=== PATIENT | female | born 1985 | race Caucasian/White ===

== ENCOUNTER 2018-09-27 06:45 | Day surgery (SDC) | payer BC ==
[2018-09-27] MEDS ORDERED: Sodium Chloride 0.9% 10 ML Syringe FLUSH PRN (07:00)
[2018-09-27] MEDS ORDERED: Lidocaine 1%/Sod Bicarbonate in NS 8.4% 1 ML Syringe IDERM PRN (07:00)
[2018-09-27] MEDS ORDERED: Ondansetron 4 MG/2 ML SDV ONE (07:19)
[2018-09-27] MEDS ORDERED: Lactated Ringers 1,000 ML ONE (07:19)
[2018-09-27] MEDS ORDERED: Lidocaine 1% 4 ML ONE (07:19)
[2018-09-27] MEDS ORDERED: Propofol 200 MG/20 ML SDV ONE (07:19)
[2018-09-27] MEDS ORDERED: ceFAZolin 1 GM Vial ONE (07:19)
[2018-09-27] MEDS ORDERED: Rocuronium 50 MG/5 ML Vial ONE (07:19)
[2018-09-27] MEDS ORDERED: Ketorolac 30 MG/ML SDV ONE (07:20)
[2018-09-27] MEDS ORDERED: fentaNYL 250 MCG/5 ML SDV ONE (07:20)
[2018-09-27] MEDS ORDERED: Midazolam 1 MG/ML 2 ML SDV ONE (07:20)
[2018-09-27] MEDS ORDERED: Dexamethasone 4 MG/ML 5 ML MDV ONE (07:20)
[2018-09-27] MEDS ORDERED: Bupivacaine 0.5% 30 ML SDV ONE (07:31)
[2018-09-27] MEDS ORDERED: Lidocaine 1% with EPINEPHrine 1:100,000 20 ML MDV ONE (07:31)
[2018-09-27] MEDS ORDERED: Sodium Chloride 0.9% 50 ML SDV ONE (07:32)
[2018-09-27] MEDS: Lactated Ringers 1,000 ML IV SCH ×2 (07:35→10:14)
--- NOTE | 2018-09-27 08:55 | PCM.PREANE ---
Preanesthetic Assessment - Anesthesia/Transfusion/Family Hx Anesthesia History: Prior Anesthesia Reaction Type of Anesthesia Reaction: Excessive Somnolence Family History of Anesthesia Reaction: No - Review of Systems General: No Symptoms Pulmonary: No Symptoms Cardiovascular: No Symptoms Gastrointestinal: No Symptoms Neurological: No Symptoms Other: Reports: None - Physical Assessment NPO Status Date: 09/26/18 NPO Status Time: 21:00 O2 Sat by Pulse Oximetry: 96 Respiratory Rate: 16 Vital Signs: Last Vital Signs Temp 36.8 C 09/27/18 07:15 Pulse 98 09/27/18 07:15 Resp 16 09/27/18 07:15 BP 134/72 09/27/18 07:15 Pulse Ox 96 09/27/18 07:15 Height: 1.63 m Weight: 78.925 kg ASA Class: 1 Mental Status: Alert & Oriented x3 Airway Class: Mallampati = 1 Dentition: Reports: Normal Dentition Thyro-Mental Finger Breadths: 3 Mouth Opening Finger Breadths: 3 ROM/Head Extension: Full Lungs: Clear to Auscultation Cardiovascular: Regular Rate, Regular Rhythm - Lab Values: Laboratory Last Values WBC 6.10 K/mm3 (3.98-10.04) 09/27/18 06:53 RBC 4.41 M/mm3 (3.98-5.22) 09/27/18 06:53 Hgb 12.6 gm/L (11.2-15.7) 09/27/18 06:53 Hct 38.3 % (34.1-44.9) 09/27/18 06:53 MCV 86.8 fl (79.4-94.8) 09/27/18 06:53 MCH 28.6 pg (25.6-32.2) 09/27/18 06:53 MCHC 32.9 g/dl (32.2-35.5) 09/27/18 06:53 RDW Std Deviation 42.0 fL (36.4-46.3) 09/27/18 06:53 Plt Count 296 K/mm3 (182-369) 09/27/18 06:53 MPV 10.7 fl (9.4-12.3) 09/27/18 06:53 Neut % (Auto) 60.0 % (34.0-71.1) 09/27/18 06:53 Lymph % (Auto) 31.5 % (19.3-51.7) 09/27/18 06:53 Bath % (Auto) 6.7 % (4.7-12.5) 09/27/18 06:53 Eos % (Auto) 1.3 (0.7-5.8) 09/27/18 06:53 Baso % (Auto) 0.3 % (0.1-1.2) 09/27/18 06:53 Neut # (Auto) 3.66 K/mm3 (1.56-6.13) 09/27/18 06:53 Lymph # (Auto) 1.92 K/mm3 (1.18-3.74) 09/27/18 06:53 Bath # (Auto) 0.41 K/mm3 (0.24-0.36) H 09/27/18 06:53 Eos # (Auto) 0.08 K/mm3 (0.04-0.36) 09/27/18 06:53 Baso # (Auto) 0.02 K/mm3 (0.01-0.08) 09/27/18 06:53 HCG, Quant < 1.0 mIU/mL 09/27/18 06:53 - Allergies Allergies/Adverse Reactions: Allergies Allergy/AdvReac Type Severity Reaction Status Date / Time No Known Allergies Allergy Verified 09/27/18 07:52 - Anesthesia Plan Pre-Op Medication Ordered: Anxiolytic - Acknowledgements Anesthesia Type Planned: General Anesthesia Pt an Appropriate Candidate for the Planned Anesthesia: Yes Alternatives and Risks of Anesthesia Discussed w Pt/Guardian: Yes Pt/Guardian Understands and Agrees with Anesthesia Plan: Yes PreAnesthesia Questionnaire HEENT History: Reports: Impaired Vision Cardiovascular History: Reports: None Respiratory History: Reports: None Gastrointestinal History: Reports: None Genitourinary History: Reports: None 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: , 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) Other OB/BYN History: ASCUS, breast lump, SUDHEER I,II,III, dysmenorrhea, HPV, menorrhagia Musculoskeletal History: Reports: None Neurological History: Reports: None Psychiatric History: Reports: None Endocrine/Metabolic History: Reports: None Hematologic History: Reports: None Immunologic History: Reports: None Oncologic (Cancer) History: Reports: None Dermatologic History: Reports: None - Past Surgical History Head Surgeries/Procedures: Reports: None HEENT Surgical History: Reports: None Cardiovascular Surgical History: Reports: None Respiratory Surgical History: Reports: None GI Surgical History: Reports: Cholecystectomy Female Surgical History: Reports: Section Endocrine Surgical History: Reports: None Neurological Surgical History: Reports: None Musculoskeletal Surgical History: Reports: None Oncologic Surgical History: Reports: None Dermatological Surgical History: Reports: None - SUBSTANCE USE Smoking Status *Q: Former Smoker Recreational Drug Use History: No - HOME MEDS Home Medications: Home Meds Cholecalciferol (Vitamin D3) [Vitamin D3] 2,000 unit PO DAILY 09/26/18 [History] Cyanocobalamin (Vitamin B-12) [Vitamin B-12] 500 mcg PO DAILY 09/26/18 [History] Fish Oil/[place]-3 Fatty Acids [Fish Oil 1,000 MG] 1 gm PO DAILY 09/26/18 [History ] Lactobacillus Combination No.4 [Probiotic] 1 cap PO DAILY 09/26/18 [History] Multivits,Ca,Minerals/Iron/FA [Women's Daily Formula Caplet] 1 tab PO DAILY [History] - CURRENT (IN HOUSE) MEDS Current Meds: Current Medications Lactated Ringer's (Ringers, Lactated) 1,000 mls @ 125 mls/hr IV ASDIRECTED SUJIT Stop: 09/27/18 23:00 Last Admin: 09/27/18 07:35 Dose: 125 mls/hr Lidocaine/Sodium Bicarbonate (Buffered Lidocaine 1% In Ns 8.4%) 0.25 ml IDERM ONETIME PRN PRN Reason: Prior to IV Start Stop: 09/27/18 18:00 Last Admin: 09/27/18 07:35 Dose: 0.25 ml Sodium Chloride (Saline Flush) 10 ml FLUSH ASDIRECTED PRN PRN Reason: Keep Vein Open Stop: 09/27/18 23:00 Discontinued Medications Bupivacaine HCl (Marcaine 0.5%) Confirm Administered Dose 30 ml .ROUTE .STK-MED ONE Stop: 09/27/18 07:32 Cefazolin Sodium (Ancef) Confirm Administered Dose 2 gm .ROUTE .STK-MED ONE Stop: 09/27/18 07:20 Dexamethasone (Dexamethasone) Confirm Administered Dose 20 mg .ROUTE .STK-MED ONE Stop: 09/27/18 07:21 Fentanyl (Sublimaze) Confirm Administered Dose 250 mcg .ROUTE .STK-MED ONE Stop: 09/27/18 07:21 Lidocaine HCl (Xylocaine-Mpf 1%) Confirm Administered Dose 4 mls @ as directed .ROUTE .STK-MED ONE Stop: 09/27/18 07:20 Lactated Ringer's (Ringers, Lactated) Confirm Administered Dose 1,000 mls @ as directed .ROUTE .STK-MED ONE Stop: 09/27/18 07:20 Ketorolac Tromethamine (Toradol) Confirm Administered Dose 30 mg .ROUTE .STK- MED ONE Stop: 09/27/18 07:21 Lidocaine/Epinephrine (Xylocaine 1% With Epinephrine 1:100,000) Confirm Administered Dose 20 ml .ROUTE .STK-MED ONE Stop: 09/27/18 07:32 Midazolam HCl (Versed 1 Mg/Ml) Confirm Administered Dose 2 mg .ROUTE .STK-MED ONE Stop: 09/27/18 07:21 Ondansetron HCl (Zofran) Confirm Administered Dose 4 mg .ROUTE .STK-MED ONE Stop: 09/27/18 07:20 Propofol (Diprivan 20 Ml) Confirm Administered Dose 400 mg .ROUTE .STK-MED ONE Stop: 09/27/18 07:20 Rocuronium [place] (Zemuron) Confirm Administered Dose 50 mg .ROUTE .STK-MED ONE Stop: 09/27/18 07:20 Sodium Chloride (Normal Saline) Confirm Administered Dose 50 ml .ROUTE .STK-MED ONE Stop: 09/27/18 07:33
[2018-09-27] MEDS ORDERED: fentaNYL 100 MCG/2 ML SDV IVPUSH PRN (08:56)
[2018-09-27] MEDS ORDERED: diphenhydrAMINE 50 MG/ML SDV IVPUSH PRN (08:56)
[2018-09-27] MEDS ORDERED: HYDROmorphone 0.5 MG/0.5 ML Syringe IVPUSH PRN (08:56)
[2018-09-27] MEDS ORDERED: Ondansetron 4 MG/2 ML SDV IVPUSH PRN (08:56)
[2018-09-27] MEDS ORDERED: Ketamine 500 mg/10 ML MDV ONE (09:12)
--- NOTE | 2018-09-27 10:00 | PCM.OPNOTE ---
- General Post-Op/Procedure Note Date of Surgery/Procedure: 09/27/18 Operative Procedure(s): LAVHBS Laparoscope assisted vaginal hysterectomy and bilateral salpingectomy (neither ovary removed) Pre Op Diagnosis: SUDHEER-3, menorrhagia, dysmenorrhea Post-Op Diagnosis: Same Anesthesia Technique: General ET Tube Primary Surgeon: Justo Little Secondary Surgeon: Niko Philippe Anesthesia Provider: Rosie Barragan Regulatory Agency Director: Gunnre Dave (MS3) Reason Regulatory Agency Director Was Necessary: Assist in surgery and decrease comorbidity and mortality retraction to allow surgeon to see during the operative procedure Role of Regulatory Agency Director: Assist in surgery and decrease comorbidity and mortality retraction to allow surgeon to see during the operative procedure Fluid Replacement, Intraop: 2,000 Output, Urine Amount: 75 EBL in mLs: 150 Drain/Tube Comments:: None Complications: None Condition: Good Free Text/Narrative:: Patient was transported to the operating room and placed in low dorsal position , SCDs in place and functioning prior surgery. Patient received Ancef 2 g intravenously prior surgery. Timeout performed confirming name date of and procedure as laparoscope assisted vaginal hysterectomy bilateral salpingectomy, possible total abdominal hysterectomy or total vaginal hysterectomy bilateral salpingectomy. Patient was prepared and draped in a sterile fashion Mckeon catheter placed gravity drainage and removed after surgery. Uterine manipulator was placed for the laparoscope portion of the procedure. Examination under anesthesia had revealed anterior uterus no adnexal masses. 2 mL of Marcaine 0.5 without epinephrine injected at the umbilicus approximate 6 mm incision made and self-retaining trocar inserted without difficulty after obtaining pneumoperitoneum and varies needle. Transillumination of the abdomen the right and left lower quadrant performed and additional self-retaining 5 mm trochars placed after injecting 2 mL of Marcaine at the area of the planned insertion. Prompt visualization of the pelvis was obtained without difficulty. Decision was made to proceed with laparoscope assisted vaginal hysterectomy bilateral salpingectomy. Utilizing Enseal the right tube was grasped and the Enseal applied at the mesial salpinx crossclamped activated and incised. Proceeding towards the uterus and the mesial salpinx crossclamping activating and incising with the Enseal. At the triple pedicle the round ligament and utero-ovarian ligament crossclamped with the Enseal activated and incised and proceeding caudad crossclamping activating and incising until the area of the reflection of the peritoneum at the lower uterine segment was approximated. Undermining and remaining close to the uterus utilizing Enseal crossclamping activating and incising the bladder flap was created. Additional Enseal application to close the uterine vessels was performed. On the left side same procedure was carried out as on the right side with proceeding to the mesial salpinx to the uterus the round ligament and utero -ovarian ligament crossclamped activated and incised with the Enseal. Proceeding in a serial fashion caudad crossclamping activating and incising to the area of the uterine vasculature which was crossclamped activated in size. Neither ovary was removed. Both ovaries appeared normal. The vaginal portion procedure was then performed injecting 15 mL of 0.25% lidocaine with epinephrine and multiple confluent areas, the cervix was circumscribed and posterior colpotomy was performed without difficulty. Utilizing Enseal crossclamping the uterosacral ligaments on the left side first and then the right side activating and incising proceeding cephalad additional application Enseal was required to complete the procedure vaginally. The anterior cul-de- sac was entered without difficulty. The uterus was removed and inspection of the pedicles revealed no bleeding. The posterior vaginal cuff was closed with a running locking suture of 0 Monocryl. Anterior and posterior vaginal cuff then approximated with 0 Monocryl running locking suture after evaluation again revealed no bleeding. The pneumoperitoneum was then re-obtained and inspection of the operative site showed no bleeding both ovaries appeared normal in color with no cyanosis or indications impingement of blood supply. The pneumoperitoneum was reduced and the 3 incisions were suture ligated with 3-0 Monocryl after removal of the self-retaining trochars. No blood transfusions were required sponge needle pack instrument count were correct 2 and the patient was transported postanesthesia care unit in satisfactory condition. Images: Image 001 shows the right ovary and fallopian tube and uterus prior to beginning the procedure. Left ovary and tube were also visualized cul-de-sac is visualized with no adhesions or endometriosis. Image 002 shows the left tube and ovary prior to beginning hysterectomy. Image 003 shows the uterus left tube and ovary and right ovary and cul-de-sac appeared normal. Image 004 shows one dense adhesions of the peritoneum to the anterior lower uterine segment Image 005 shows the area of the lower uterine segment where the bladder flap was created. Image 006 shows the area of the cul-de-sac after the procedure has been completed with no active bleeding. Image 007 shows a right ovary normal-appearing and no bleeding. Image 008 shows the left ovary with no bleeding in the area of surgery. Image 009 shows the left flank incision were trochars removed with no bleeding. Image 010 shows the right flank incision after trocar removal with no bleeding. I talked with patient's and explained surgical procedure and also he understands that neither ovary was removed. [place]erc[place] 5/325 dispense 30 take one to 2 by mouth every 6-8 hours and no refills. Also prescription for Zofran ODT 4 mg dispense 20 take one as needed for nausea under tongue.
--- NOTE | 2018-09-27 10:15 | PCM.POSTAN ---
POST ANESTHESIA ASSESSMENT - MENTAL STATUS Mental Status: Alert, Oriented - VITAL SIGNS Pulse Rate: 109 SaO2: 100 Resp Rate: 11 Blood Pressure: 106/57 Temperature: 37.2 C - RESPIRATORY Respiratory Status: Respiratory Rate WNL, Airway Patent, O2 Saturation Stable, Supplemental Oxygen - CARDIOVASCULAR CV Status: Blood Pressure Stable, Elevated Pulse Rate - GASTROINTESTINAL GI Status: No Symptoms - PAIN Pain Score: 0 - POST OP HYDRATION Hydration Status: Adequate & Stable
[2018-09-27] MEDS ORDERED: Acetaminophen/oxyCODONE 325-5 MG Tab PO ONE (11:30)
--- NOTE | 2018-09-27 12:03 | PCM48HPAN ---
Post Anesthesia Note - EVALUATION WITHIN 48HRS OF ANESTHETIC Vital Signs in Normal Range: Yes Patient Participated in Evaluation: Yes Respiratory Function Stable: Yes Airway Patent: Yes Cardiovascular Function Stable: Yes Hydration Status Stable: Yes Pain Control Satisfactory: Yes Nausea and Vomiting Control Satisfactory: Yes Mental Status Recovered: Yes - COMMENTS/OBSERVATIONS Free Text/Narrative:: Merlyn is ambulating in the hallway. She has noted some cramping but feels it to be tolerable.
[2018-09-27 13:42] VITALS: BP 113/54
== END 2018-09-27 14:05 | disposition home or self-care (01) ==
LOC: JD.SDS 06:45
PROVIDERS: ATTEND Obstetrics & Gynecology
DX: N92.0 Excessive and frequent menstruation with regular cycle (principal); N73.6 Female pelvic peritoneal adhesions (postinfective); N83.8 Other noninflammatory disorders of ovary, fallopian tube and broad ligament; N94.6 Dysmenorrhea, unspecified; Z87.891 Personal history of nicotine dependence; Z79.899 Other long term (current) drug therapy
CPT/HCPCS: 36415; 58552; 84702; 85025; 86850; 86900; 86901; A9270; J0690; J1100; J1885; J2001; J2250; J2405; J2704; J3010; J3490; J7120; 00944

== ENCOUNTER 2019-07-20 09:32 | Day surgery (SDC) | payer BC ==
[~2019-07-20 09:32] MED LIST: Dexamethasone 4 MG/ML 5 ML MDV ONE; Ketorolac 30 MG/ML SDV ONE; Lactated Ringers 1,000 ML IV SCH; Lactated Ringers 1,000 ML ONE; Lidocaine 1% 4 ML ONE; Lidocaine 1%/Sod Bicarbonate in NS 8.4% 1 ML Syringe IDERM PRN; Midazolam 1 MG/ML 2 ML SDV ONE; Ondansetron 4 MG/2 ML SDV ONE; Propofol 200 MG/20 ML SDV ONE; Scopolamine 1.5 MG Transdermal Patch TOP ONE; Sodium Chloride 0.9% 10 ML Syringe FLUSH PRN; fentaNYL 100 MCG/2 ML SDV ONE
[2019-07-20] MEDS ORDERED: Bupivacaine 0.5%/EPINEPHrine 1:200,000 50 ML MDV ONE (09:44)
[2019-07-20] MEDS ORDERED: Scopolamine 1.5 MG Transdermal Patch TOP ONE (10:15)
[2019-07-20] MEDS ORDERED: Albuterol 6.7 GM Inhaler INH ONE (10:20)
[2019-07-20] MEDS ORDERED: Ketamine 500 mg/10 ML MDV ONE (10:39)
[2019-07-20] MEDS ORDERED: fentaNYL 100 MCG/2 ML SDV ONE (10:56)
[2019-07-20] MEDS ORDERED: Propofol 200 MG/20 ML SDV ONE (11:04)
--- NOTE | 2019-07-20 11:48 | PCM48HPAN ---
Post Anesthesia Note - EVALUATION WITHIN 48HRS OF ANESTHETIC Vital Signs in Normal Range: Yes Patient Participated in Evaluation: Yes Respiratory Function Stable: Yes Airway Patent: Yes Cardiovascular Function Stable: Yes Hydration Status Stable: Yes Pain Control Satisfactory: Yes Nausea and Vomiting Control Satisfactory: Yes Mental Status Recovered: Yes Vital Signs: Last Vital Signs Temp 36.6 C 07/20/19 09:50 Pulse 82 07/20/19 09:50 Resp 16 07/20/19 09:50 BP 127/97 H 07/20/19 09:50 Pulse Ox 99 07/20/19 09:50
--- NOTE | 2019-07-20 11:51 | PCM.PRNOTE ---
- Free Text/Narrative Note: Date: 07/20/2019 Operation: left breast excisional biopsy Surgeon: Pedro Barrios MD Findings: slightly distinct, more fibrous lesion noted on intra-operative ultrasound at 3 o'clock, 10 cm from the nipple corresponding to lesion noted on diagnostic ultrasound previously. No distinct lesion was palpable before or after skin incision. A roughly 2 x 2 x 2 cm excision encompassing the area of concern was obtained. No palpable lesion was identified after excision and no lesion was identifiable with ultrasound. Detailed Report: The patient was taken to the OR and placed in supine position. MAC was initiated and timeout performed. The left breast was prepped and draped in sterile fashion. A ruler and marker were used to identify the region of concern , at the 3 o'clock position 10 cm out from the nipple. Intraoperative ultrasound was used to visualize the underlying soft tissue and search for the lesion in question. A small, well circumscribed hypoechoic lesion was seen and additional laboy were placed on the skin to help target the lesion. 10 cc 0.5% marcaine with epinephrine was injected intradermally. A transversely oriented 3 cm incision was made at the lateral aspect of the breast and skin flaps developed. Palpation did not reveal any discreet lesion. Bates clamps were placed on lobular fatty tissue of the breast, encompassing the area of interest. Sharp dissection ensured and a specimen of breast tissue measuring 2 x 2 x 2 cm was removed. The wound was irrigated, and again thoroughly investigated with palpation and ultrasound imaging. No remaining abnormality was noted. The wound was closed with interrupted deep dermal vicryl sutures, and skin was closed at the subcuticular level with running absorbable suture and dressed with dermabond. The patient tolerated the procedure well. Pedro Barrios MD General Surgery
--- NOTE | 2019-07-20 12:10 | PCM.PREANE ---
Preanesthetic Assessment - Anesthesia/Transfusion/Family Hx Anesthesia History: Prior Anesthesia Reaction Family History of Anesthesia Reaction: No - Review of Systems General: No Symptoms Pulmonary: No Symptoms Cardiovascular: No Symptoms, Palpitations (History of about one year ago. Negative workup including holter monitor. Has not had an episode since that time. ) Gastrointestinal: No Symptoms Neurological: No Symptoms Other: Reports: None - Physical Assessment NPO Status Date: 07/19/19 NPO Status Time: 23:00 Vital Signs: Last Vital Signs Temp 36.6 C 07/20/19 11:30 Pulse 81 07/20/19 12:00 Resp 16 07/20/19 12:00 BP 114/64 07/20/19 12:00 Pulse Ox 97 07/20/19 12:00 Height: 1.63 m Weight: 75.75 kg ASA Class: 2 Mental Status: Alert & Oriented x3 Airway Class: Mallampati = 1 Dentition: Reports: Normal Dentition Thyro-Mental Finger Breadths: 3 Mouth Opening Finger Breadths: 3 ROM/Head Extension: Full Lungs: Clear to Auscultation, Normal Respiratory Effort Cardiovascular: Regular Rate, Regular Rhythm - Allergies Allergies/Adverse Reactions: Allergies Allergy/AdvReac Type Severity Reaction Status Date / Time No Known Allergies Allergy Verified 07/19/19 12:52 - Anesthesia Plan Pre-Op Medication Ordered: Other (Scopalamine Patch) - Acknowledgements Anesthesia Type Planned: MAC Pt an Appropriate Candidate for the Planned Anesthesia: Yes Alternatives and Risks of Anesthesia Discussed w Pt/Guardian: Yes Pt/Guardian Understands and Agrees with Anesthesia Plan: Yes PreAnesthesia Questionnaire HEENT History: Reports: Impaired Vision Cardiovascular History: Reports: Arrhythmia, 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) Other Cardiovascular History: palpitations Respiratory History: Reports: None Gastrointestinal History: Reports: None, Chronic Constipation Genitourinary History: Reports: 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) Other Genitourinary History: breast lump, breast tenderness, dysuria, suprapubic pain, 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: , 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) Other OB/BYN History: ASCUS, breast lump, SUDHEER I,II,III, dysmenorrhea, HPV, menorrhagia Musculoskeletal History: Reports: 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) Other Musculoskeletal History: toe pain Neurological History: Reports: None Psychiatric History: Reports: None Endocrine/Metabolic History: Reports: None Hematologic History: Reports: None Immunologic History: Reports: None Oncologic (Cancer) History: Reports: None Dermatologic History: Reports: None - Past Surgical History Head Surgeries/Procedures: Reports: None HEENT Surgical History: Reports: None Cardiovascular Surgical History: Reports: None Respiratory Surgical History: Reports: None GI Surgical History: Reports: Cholecystectomy Female Surgical History: Reports: Section Endocrine Surgical History: Reports: None Neurological Surgical History: Reports: None Musculoskeletal Surgical History: Reports: None Oncologic Surgical History: Reports: None Dermatological Surgical History: Reports: None - SUBSTANCE USE Smoking Status *Q: Former Smoker Recreational Drug Use History: No - HOME MEDS Home Medications: Home Meds Cholecalciferol (Vitamin D3) [Vitamin D3] 2,000 unit PO DAILY 09/26/18 [History] Lactobacillus Combination No.4 [Probiotic] 1 cap PO DAILY 09/26/18 [History] Multivit,Calc,Mins/Iron/Folic [Women's Daily Formula Caplet] 1 tab PO DAILY [History] Inulin/Chromium Picolinate [Fiber Gummies] 2 tab PO DAILY 07/19/19 [History] - CURRENT (IN HOUSE) MEDS Current Meds: Current Medications Lactated Ringer's (Ringers, Lactated) 1,000 mls @ 125 mls/hr IV ASDIRECTED SUJIT Stop: 07/20/19 23:00 Last Admin: 07/20/19 10:05 Dose: 125 mls/hr Lidocaine/Sodium Bicarbonate (Buffered Lidocaine 1% In Ns 8.4%) 0.25 ml IDERM ONETIME PRN PRN Reason: Prior to IV Start Stop: 07/20/19 18:00 Last Admin: 07/20/19 10:04 Dose: 0.25 ml Miscellaneous Information (Remove Patch) 1 ea TRDERM ONETIME SUJIT Sodium Chloride (Saline Flush) 10 ml FLUSH ASDIRECTED PRN PRN Reason: Keep Vein Open Stop: 07/20/19 18:00 Sodium Chloride (Saline Flush) 10 ml FLUSH ASDIRECTED PRN PRN Reason: Keep Vein Open Stop: 07/20/19 18:00 Discontinued Medications Albuterol (Proventil Hfa) Confirm Administered Dose 6.7 gm INH .STK-MED ONE Stop: 07/20/19 10:21 Bupivacaine HCl/Epinephrine Bitart (Marcaine 0.5%/Epinephrine 1:200,000) Confirm Administered Dose 50 ml .ROUTE .STK-MED ONE Stop: 07/20/19 09:45 Last Admin: 07/20/19 10:54 Dose: 14 ml Dexamethasone (Dexamethasone) Confirm Administered Dose 20 mg .ROUTE .STK-MED ONE Stop: 07/20/19 07:40 Fentanyl (Sublimaze) Confirm Administered Dose 100 mcg .ROUTE .STK-MED ONE Stop: 07/20/19 07:40 Fentanyl (Sublimaze) Confirm Administered Dose 100 mcg .ROUTE .ST-MED ONE Stop: 07/20/19 10:57 Lactated Ringer's (Ringers, Lactated) 1,000 mls @ 125 mls/hr IV ASDIRECTED SUJIT Stop: 07/20/19 23:00 Lactated Ringer's (Ringers, Lactated) Confirm Administered Dose 1,000 mls @ as directed .ROUTE .ST-MED ONE Stop: 07/20/19 07:39 Lidocaine HCl (Xylocaine-Mpf 1%) Confirm Administered Dose 4 mls @ as directed .ROUTE .ST-MED ONE Stop: 07/20/19 07:40 Ketamine HCl (Ketalar) Confirm Administered Dose 500 mg .ROUTE .STK-MED ONE Stop: 07/20/19 10:40 Ketorolac Tromethamine (Toradol) Confirm Administered Dose 30 mg .ROUTE .ST- MED ONE Stop: 07/20/19 07:39 Lidocaine/Sodium Bicarbonate (Buffered Lidocaine 1% In Ns 8.4%) 0.25 ml IDERM ONETIME PRN PRN Reason: Prior to IV Start Stop: 07/20/19 18:00 Midazolam HCl (Versed 1 Mg/Ml) Confirm Administered Dose 2 mg .ROUTE .STK-MED ONE Stop: 07/20/19 07:40 Ondansetron HCl (Zofran) Confirm Administered Dose 4 mg .ROUTE .STK-MED ONE Stop: 07/20/19 07:39 Propofol (Diprivan 20 Ml) Confirm Administered Dose 600 mg .ROUTE .STK-MED ONE Stop: 07/20/19 07:40 Propofol (Diprivan 20 Ml) Confirm Administered Dose 600 mg .ROUTE .STK-MED ONE Stop: 07/20/19 11:05 Scopolamine (Transderm-Scop) 1.5 mg TOP ONETIME ONE Stop: 07/20/19 07:38 Scopolamine (Transderm-Scop) 1.5 mg TOP ONETIME ONE Stop: 07/20/19 10:16 Last Admin: 07/20/19 10:19 Dose: 1.5 mg Sodium Chloride (Saline Flush) 10 ml FLUSH ASDIRECTED PRN PRN Reason: Keep Vein Open Stop: 07/20/19 18:00
[2019-07-20 12:29] VITALS: BP 114/74; PULSE 74
== END 2019-07-20 12:40 | disposition home or self-care (01) ==
LOC: JD.SDS 09:32
PROVIDERS: ATTEND Surgery
DX: N63.21 Unspecified lump in the left breast, upper outer quadrant (principal); Z87.891 Personal history of nicotine dependence
CPT/HCPCS: 19101; A9270; J1100; J1885; J2001; J2250; J2405; J2704; J3010; J3490; J7120; 00400

== ENCOUNTER 2019-12-07 10:10 | Emergency (ER) | payer BC ==
[2019-12-07 10:43] VITALS: BP 137/67; PULSE 103
[2019-12-07] MEDS ORDERED: Lidocaine 1% 10 ML MDV INJECT ONE (11:11)
--- NOTE | 2019-12-07 11:19 | EDM.PDOC ---
ED HPI GENERAL MEDICAL PROBLEM - General Chief Complaint: Skin Complaint Stated Complaint: SPLINTER IN FINGER Time Seen by Provider: 12/07/19 11:03 Source of Information: Reports: Patient, RN Notes Reviewed History Limitations: Reports: No Limitations - History of Present Illness INITIAL COMMENTS - FREE TEXT/NARRATIVE: Patient is a 34-year-old female who presents to the ED for the evaluation of a splinter in her right ring finger. Patient notes she was helping her stay in the deck, and she ended up getting a sliver in the right ring finger, this is on the posterior surface of her hand, near the lateral side of the nail, and extends to the fingertip. Patient states she is having some mild numbness to the tip, but can still move her finger in all range of motion without much difficulty. Patient states that she has no other past medical history, and is not complaining of any other sick-like symptoms. She states she just simply could not remove the splinter at home. Right Finger-Ring Pain Score (Numeric/FACES): 7 - Related Data Allergies Allergy/AdvReac Type Severity Reaction Status Date / Time No Known Allergies Allergy Verified 12/07/19 10:34 Home Meds: Home Meds Cholecalciferol (Vitamin D3) [Vitamin D3] 2,000 unit PO DAILY 09/26/18 [History] Lactobacillus Combination No.4 [Probiotic] 1 cap PO DAILY 09/26/18 [History] Multivit,Calc,Mins/Iron/Folic [Women's Daily Formula Caplet] 1 tab PO DAILY 09/26/18 [History] Inulin/Chromium Picolinate [Fiber Gummies] 2 tab PO DAILY 07/19/19 [History] Past Medical History HEENT History: Reports: Impaired Vision Cardiovascular History: Reports: Arrhythmia, 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) Other Cardiovascular History: palpitations Gastrointestinal History: Reports: Chronic Constipation Genitourinary History: Reports: 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) Other Genitourinary History: breast lump, breast tenderness, dysuria, suprapubic pain, UTI FORESTRY INSTRUCTOR History: Reports: , 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) Other FORESTRY INSTRUCTOR History: ASCUS, breast lump, SUDHEER I,II,III, dysmenorrhea, HPV, menorrhagia Musculoskeletal History: Reports: 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) Other Musculoskeletal History: toe pain Oncologic (Cancer) History: Reports: None - Past Surgical History GI Surgical History: Reports: Cholecystectomy Female Surgical History: Reports: Section Social & Family History - Tobacco Use Smoking Status *Q: Never Smoker - Caffeine Use Caffeine Use: Reports: Coffee, Soda, Tea ED ROS GENERAL - Review of Systems Review Of Systems: See Below Skin: Reports: Other (splinter in R ring finger, see HPI) Neurological: Reports: Numbness (mild numbness distal to splinter entry) ED EXAM, SKIN/RASH Exam: See Below Exam Limited By: No Limitations General Appearance: Alert, WD/WN, No Apparent Distress Respiratory/Chest: No Respiratory Distress, Lungs Clear, Normal Breath Sounds, No Accessory Muscle Use, Chest Non-Tender Cardiovascular: Normal Peripheral Pulses, Regular Rate, Rhythm, No Murmur Peripheral Pulses: 3+: Radial (L), Radial (R) Extremities: Normal Inspection, Normal Range of Motion, Normal Capillary Refill, Other (wood splinter in R right finger, near lateral nail bed, and extends to the finger tip.). No: Redness Neurological: Alert, Oriented, Normal Cognition, No Motor/Sensory Deficits Psychiatric: Normal Affect, Normal Mood Skin: Warm, Dry, Normal Color, No Rash, Other (splinter in R finger, see extremity assessment for full detail) ED SKIN PROCEDURES - Foreign Body Removal Indication:: splinter in finger Consent Obtained:: Patient (verbal consent) Performing Doctor:: Myranda Webb Foreign Body Other Location Comment:: wood splinter in R ring finger Anesthesia Type: Local (1mL of 1% lidocaine) Findings:: roughly 2mm pointed wooden splinter taken out of right ring finger, no other material was felt to be left present. Complications:: No Course - Vital Signs Last Recorded V/S: Last Vital Signs Temp 98.6 F 12/07/19 10:31 Pulse 103 H 12/07/19 10:31 Resp 16 12/07/19 10:31 BP 137/67 12/07/19 10:31 Pulse Ox 98 12/07/19 10:31 - Orders/Labs/Meds Meds: Medications Discontinued Medications Generic Name Dose Route Start Last Admin Trade Name Freq PRN Reason Stop Dose Admin Lidocaine HCl 10 ml 12/07/19 11:11 12/07/19 11:40 Xylocaine 1% INJECT 12/07/19 11:12 10 ml ONETIME ONE Administration - Re-Assessments/Exams Free Text/Narrative Re-Assessment/Exam: 12/07/19 11:19 Patient presents to the ED for the evaluation of a splinter in her finger. Area will be numbed, and the splinter will be removed. Departure - Departure Time of Disposition: 11:46 Disposition: Home, Self-Care 01 Condition: Good Clinical Impression: Embedded wood splinter - Discharge Information *PRESCRIPTION DRUG MONITORING PROGRAM REVIEWED*: No *COPY OF PRESCRIPTION DRUG MONITORING REPORT IN PATIENT REYES: No Referrals: Danny Del Rosario PA-C [Primary Care Provider] - Forms: ED Department Discharge Additional Instructions: You were evaluated in the ER today regarding the splinter in your right ring finger. The area was numbed up, and the splinter was removed successfully. Recommend that you soak your finger in Epsom salt soaks 2 times a day for the next couple days to help provide wound cleaning, and to hopefully dislodge any smaller splinters that have been retained as this was a rather large wood splinter. Watch out for signs of infection, redness swelling tenderness any drainage from the site, as this would mean that you would likely need to be on a course of antibiotics. Please return to the ER at any time if your symptoms change or worsen. Sepsis Event Note (ED) - Evaluation Sepsis Screening Result: No Definite Risk - Focused Exam Vital Signs: Vital Signs Temp Pulse Resp BP Pulse Ox 12/07/19 10:31 98.6 F 103 H 16 137/67 98
== END 2019-12-07 11:56 | disposition home or self-care (01) ==
LOC: JD.ED 10:10
DX: S60.454A Superficial foreign body of right ring finger, initial encounter (principal); W45.8XXA Other foreign body or object entering through skin, initial encounter
CPT/HCPCS: 99282; J2001